=== PATIENT | female | born 1995 | race Hispanic/Latino ===

== ENCOUNTER 2018-03-02 14:55 | Outpatient (CLI) | payer MEDICAID ==
[2018-03-02 18:25] VITALS: BP 115/70
--- NOTE | 2018-03-02 19:57 | Ultrasound Report ---
FINAL REPORT EXAM: US OB FOLLOW UP HISTORY: WELL BEING; RAJEEV TECHNIQUE: Ultrasound obstetrical transabdominal PRIORS: None. FINDINGS: Single live intrauterine gestation present in cephalic presentation. cardiac activity present w ith heart rate 137 beats per minute The placenta is grade 1 and left lateral biometric measurements were obtained Biparietal diameter 38 weeks 3 days Head circumference 30 weeks 3 days abdominal circumference 37 weeks 5 days Femur length 36 weeks 3 days Based on today's exam estimated gestational age is 37 weeks 5 days estimated date of delivery March 18, 2015 Estimated weight today is 3249 grams IMPRESSION: Single live intrauterine gestation estimated at 37 weeks 5 days
--- NOTE | 2018-03-02 20:05 | Ultrasound Report ---
FINAL REPORT EXAM: US OB BPP WO NON-STRESS HISTORY: WELL BEING TECHNIQUE: Ultrasound biophysical profile PRIORS: None. FINDINGS: Single live intrauterine gestation is present with heart rate of 137 beats per minute Biophysical profile was performed respiratory motion 2 Body movement 2 tone 2 Amniotic fluid volume 2 Total 09/27 Impression Normal biophysical profile 09/27
== END 2018-03-02 19:30 | disposition home or self-care (01) ==
LOC: TRG 14:55
PROVIDERS: ATTEND Obstetrics & Gynecology
DX: O47.03 False labor before 37 completed weeks of gestation, third trimester (principal); O99.333 Smoking (tobacco) complicating pregnancy, third trimester; F17.210 Nicotine dependence, cigarettes, uncomplicated; Z3A.37 37 weeks gestation of pregnancy
CPT/HCPCS: 59025; 76816; 76819

== ENCOUNTER 2018-03-06 09:11 | Inpatient (IN) | payer MEDICAID ==
[2018-03-06] MEDS ORDERED: MINERAL OIL PO PRN ×2 (10:09→13:04)
[2018-03-06] MEDS ORDERED: BRETHINE SUB-Q PRN ×2 (10:09→13:04)
[2018-03-06] MEDS ORDERED: BRETHINE IVP PRN ×2 (10:09→13:04)
[2018-03-06] MEDS ORDERED: XYLOCAINE 2% INFILTRATI ONE ×2 (10:09→13:04)
[2018-03-06] MEDS ORDERED: PITOCin/NS 20 UNIT/1000ML DRIP 20 UNITS/1,000 ML BAG IV SCH ×2 (11:00→14:00)
[2018-03-06] MEDS ORDERED: CERVIDIL VG ONE (11:00)
[2018-03-06] MEDS ORDERED: LACTATED RINGERS 1,000 ML IV SCH ×2 (11:00→14:00)
[2018-03-06] MEDS ORDERED: PITOCin/NS 30 UNIT/500ML 30 UNITS/500 ML BAG IV SCH ×3 (11:00→14:00)
[2018-03-06 11:23] LABS: Hemoglobin 9.4 gm/dl (10.1-14.3); Mean Corpuscular HGB Conc 34 % (30-34); Mean Corpuscular Volume 87 fl (79-97); Platelet Count 214 K/mm3 (140-440); Red Blood Count 3.21 M/mm3 (3.65-5.03); Red Cell Distribution Width 15.6 % (13.2-15.2)
[2018-03-06] MEDS ORDERED: SUBLIMAZE IV PRN (13:04)
[2018-03-06] MEDS ORDERED: ZOFRAN IV PRN (13:04)
[2018-03-06] MEDS ORDERED: PHENERGAN PO PRN (13:04)
--- NOTE | 2018-03-06 13:04 | History and Physical Report ---
History of Present Illness Date of examination: 03/06/18 Date of admission: 03/06/18 09:11 Chief complaint: Induction of labor History of present illness: Pt is a 22yo WF EDC 02/26/18; EGA 41 02/26 weeks presents for induction of labor. She received late care at [facility] since 27 weeks and course has been unremarkable. records are available and GBS is unknown. Past History Past Medical History: no pertinent history Past Surgical History: no surgical history Family/Genetic History: hypertension, stroke Social history: no significant social history, single - Obstetrical History Expected Date of Delivery: 02/26/18 Actual Gestation: 41 Week(s) 1 Day(s) : 5 Medications and Allergies Allergies Allergy/AdvReac Type Severity Reaction Status Date / Time No Known Allergies Allergy Unverified 03/02/18 15:16 Active Meds: Active Medications Ephedrine Sulfate (Ephedrine Sulfate) 10 mg IV Q2M PRN PRN Reason: Hypotension Lactated Ringer's (Lactated Ringers) 1,000 mls @ 125 mls/hr IV DIRECT KALEIGH Oxytocin/Sodium Chloride (Pitocin/Ns 20 Unit/1000ml Drip) 20 units in 1,000 mls @ 125 mls/hr IV DIRECT KALEIGH Oxytocin/Sodium Chloride (Pitocin/Ns 30 Unit/500ml) 30 units in 500 mls @ 1 mls/hr IV TITR KALEIGH; Protocol Mineral Oil (Mineral Oil) 30 ml PO QHS PRN PRN Reason: Constipation Terbutaline Sulfate (Brethine) 0.25 mg SUB-Q ONCE PRN PRN Reason: Hyperstimulation/Hypertonicity Terbutaline Sulfate (Brethine) 0.25 mg IVP ONCE PRN PRN Reason: Hyperstimulation/Hypertonicity Review of Systems All systems: negative - Vital Signs Vital signs: Vital Signs Pulse BP 75 120/62 03/06/18 09:24 03/06/18 09:24 Temp Pulse Resp BP Pulse Ox 98.1 F 111 H 117/74 03/06/18 09:38 03/06/18 12:28 03/06/18 12:28 - Physical Exam Breasts: Positive: deferred Cardiovascular: Regular rate Lungs: Positive: Clear to auscultation Abdomen: Positive: normal appearance Genitourinary (Female): Positive: normal external genitalia Vagina: Positive: normal moisture Uterus: Positive: enlarged Extremities: Positive: normal - Obstetrical FHR: category 1 Uterine Contraction Monitor Mode: External Cervical Dilatation: 1 (per nurse) Cervical Effacement Percentage: 60 (per nurse) station: -3 Uterine Contraction Pattern: Irregular Uterine Tone Measurement Phase: Contraction Uterine Contraction Intensity: Mild Results Result Diagrams: 03/06/18 10:00 Abnormal lab results 03/06/18 Range/Units 10:00 RBC 3.21 L (3.65-5.03) M/mm3 Hgb 9.4 L (10.1-14.3) gm/dl Hct 28.0 L (30.3-42.9) % RDW 15.6 H (13.2-15.2) % All other labs normal. Assessment and Plan - Patient Problems (1) 41 weeks gestation of Onset Date: 03/06/18 Current Visit: Yes Status: Acute Plan to address problem: A: IUP @ 41 1/7 weeks GBS unknown P: Admit to L&D for cervidil/pitocin induction of labor IV Ampicillin
[2018-03-06] MEDS ORDERED: AMPICILLIN/NS 2 GM/100 ML 2 GM/100 ML BAG IV ONE (14:11)
[2018-03-06] MEDS: AMPICILLIN/NS 1 GM/50 ML 1 GM/50 ML BAG IV SCH ×2 (19:00→21:56)
[2018-03-07] MEDS: STADOL IV PRN ×2 (00:44→10:33)
[2018-03-07] MEDS: AMPICILLIN/NS 1 GM/50 ML 1 GM/50 ML BAG IV SCH ×2 (02:50→09:24)
--- NOTE | 2018-03-07 09:23 | Progress Note ---
Assessment and Plan - Patient Problems (1) 41 weeks gestation of Onset Date: 03/06/18 Current Visit: Yes Status: Acute Plan to address problem: A: IUP @ 41 2/7 weeks GBS unknown P: Continue with pitocin induction of labor IV Ampicillin Subjective - Subjective Date of service: 03/07/18 Principal diagnosis: IUP @ 41 2/7 weeks Interval history: Pt is a 22yo WF EDC 02/26/18; EGA 41 2/7 weeks presented for induction of labor. She received cervidil and is currently on pitocin 8mu/min and costa q 3-4 mins. Patient reports: movement normal, contractions, no new complaints, no loss of fluid, no vaginal bleeding Objective - Vital Signs Vital Signs: Vital Signs - 12hr 03/06/18 03/07/18 03/07/18 23:00 00:36 00:44 Temperature Pulse Rate 70 71 Respiratory 18 Rate Blood Pressure 109/58 119/75 03/07/18 03/07/18 03/07/18 01:45 02:17 02:45 Temperature Pulse Rate 59 L 67 65 Respiratory Rate Blood Pressure 110/71 108/60 114/67 03/07/18 03/07/18 03/07/18 03:16 03:36 03:45 Temperature 98.6 F Pulse Rate 66 71 Respiratory 18 Rate Blood Pressure 127/69 117/66 03/07/18 03/07/18 03/07/18 04:16 04:45 05:16 Temperature Pulse Rate 64 61 72 Respiratory Rate Blood Pressure 108/66 109/60 118/61 03/07/18 03/07/18 03/07/18 05:46 06:16 07:45 Temperature Pulse Rate 71 65 78 Respiratory Rate Blood Pressure 120/72 116/71 118/78 03/07/18 03/07/18 03/07/18 07:47 08:17 08:46 Temperature 98.4 F Pulse Rate 74 75 Respiratory Rate Blood Pressure 119/81 110/61 03/07/18 09:15 Temperature Pulse Rate 81 Respiratory Rate Blood Pressure 104/57 - Exam Uterus: Present: normal FHR: category 1 Uterine Contraction Monitor Mode: External Cervical Dilatation: 2 (per nurse) Cervical Effacement Percentage: 60 (per nurse) station: -2 Uterine Contraction Pattern: Regular Uterine Tone Measurement Phase: Contraction Uterine Contraction Intensity: Mild - Labs Labs: Abnormal Labs 03/06/18 10:00 RBC 3.21 L Hgb 9.4 L Hct 28.0 L RDW 15.6 H Laboratory Results - last 24 hr 03/06/18 03/06/18 03/06/18 09:55 10:00 10:00 WBC 8.2 RBC 3.21 L Hgb 9.4 L Hct 28.0 L MCV 87 MCH 29 MCHC 34 RDW 15.6 H Plt Count 214 RPR Nonreactive Blood Type O NEGATIVE Antibody Screen Negative
[2018-03-07] MEDS: IBUPROFEN PO SCH ×3 (14:00→22:56)
[2018-03-07] MEDS ORDERED: CYTOTEC ONE (15:24)
[2018-03-07] MEDS ORDERED: METHERGINE IM ONE (15:24)
--- NOTE | 2018-03-07 15:30 | Procedure Note ---
OB Delivery Note - Delivery Date of Delivery: 03/07/18 Surgeon: KAREN CHUNG Estimated blood loss: 300cc - Vaginal Delivery presentation: vertex Delivery position: OA Intrapartum events: none, PROM->1hr before delivery Delivery induction: cervidil Delivery augmentation: rupture of membranes, pitocin Delivery monitor: external FHT, external uterine Route of delivery: Delivery placenta: spontaneous Delivery cord: 3 umbilical vessels Episiotomy: none Delivery laceration: none Anesthesia: intravenous Delivery comments: delivered OA and placed on Mom's chest for [id number] bonding and delayed cord clamping, cut by grandma - A at 1 minute: 8 at 5 minutes: 9 Gender: Male (2869gms)
[2018-03-07] MEDS ORDERED: CYTOTEC PR ONE (15:33)
[2018-03-07] MEDS ORDERED: MILK OF MAGNESIA PO PRN (15:33)
[2018-03-07] MEDS ORDERED: TYLENOL PO PRN (15:33)
[2018-03-07] MEDS ORDERED: DULCOLAX PR PRN (15:33)
[2018-03-07] MEDS ORDERED: METHERGINE IM PRN (15:33)
[2018-03-07] MEDS ORDERED: PHENERGAN PR PRN (15:33)
[2018-03-07] MEDS ORDERED: LANSINOH TP PRN (15:33)
[2018-03-07] MEDS ORDERED: ZOFRAN IV PRN (15:33)
[2018-03-07] MEDS ORDERED: BENADRYL PO PRN (15:33)
[2018-03-07] MEDS ORDERED: NORCO 5/325 PO PRN (15:33)
[2018-03-07] MEDS ORDERED: TUCKS PAD TP PRN (15:33)
[2018-03-07] MEDS ORDERED: PHENERGAN PO PRN (15:33)
[2018-03-07] MEDS ORDERED: SODIUM CHLORIDE FLUSH SYRINGE 10 ML IV NR (16:00)
[2018-03-07] MEDS ORDERED: PITOCin/NS 20 UNIT/1000ML DRIP 20 UNITS/1,000 ML BAG IV SCH (16:00)
[2018-03-07] MEDS: FEOSOL PO SCH (21:38)
[2018-03-07] MEDS: COLACE PO SCH (21:38)
[2018-03-08] MEDS: IBUPROFEN PO SCH ×4 (05:04→22:33)
[2018-03-08] MEDS ORDERED: BOOSTRIX IM ONE (06:00)
[2018-03-08 06:09] LABS: Hematocrit 25.2 % (30.3-42.9); Hemoglobin 8.6 gm/dl (10.1-14.3)
[2018-03-08] MEDS: PRENATAL VITAMIN PO SCH (10:58)
[2018-03-08] MEDS: COLACE PO SCH ×2 (10:58→22:33)
[2018-03-08] MEDS: FEOSOL PO SCH ×2 (10:58→22:33)
--- NOTE | 2018-03-08 11:18 | Progress Note ---
Assessment and Plan - Patient Problems (1) 41 weeks gestation of Onset Date: 03/06/18 Current Visit: Yes Status: Resolved (2) (normal spontaneous vaginal delivery) Onset Date: 03/08/18 Current Visit: Yes Status: Resolved Plan to address problem: A: S/P - PPD #1 Doing well Asymptomatic anemia - stable P: May go home today. Subjective - Subjective Date of service: 03/08/18 Principal diagnosis: s/p - PPD #1 Interval history: Pt is feeling well without complaints. Bleeding improved. Patient reports: appetite normal, voiding normally, pain well controlled, flatus, ambulating normally, no dizzy ambulation, no nauseated : doing well, bottle feeding Objective - Vital Signs Latest vital signs: Vital Signs Temp Pulse Resp BP BP Pulse Ox 03/08/18 07:58 98.1 F 69 18 108/66 108/66 97 03/08/18 05:57 20 03/08/18 05:04 18 03/08/18 00:00 98.6 F 69 18 104/63 03/07/18 23:56 18 03/07/18 22:56 18 03/07/18 21:37 16 03/07/18 20:00 98.4 F 77 18 118/61 03/07/18 17:35 98.4 F 18 109/74 97 03/07/18 16:15 60 128/73 03/07/18 15:45 80 121/59 03/07/18 15:21 70 134/80 03/07/18 15:19 61 126/83 03/07/18 15:16 72 130/66 03/07/18 15:15 64 98 03/07/18 14:46 71 130/72 03/07/18 14:16 61 107/59 03/07/18 13:46 66 122/62 03/07/18 13:16 67 118/80 03/07/18 12:46 68 111/73 03/07/18 12:16 62 124/60 03/07/18 11:45 60 113/56 Intake and Output 03/07/18 03/08/18 03/08/18 22:59 06:59 14:59 Intake Total 300 480 Output Total 900 Balance -900 300 480 Intake: Oral 480 Intake, Free Water 300 Output: Urine 900 Void 900 Other: Total, Intake Amount 480 Total, Output Amount 900 # Voids Void 2 Estimated Blood Loss 300 - Exam Breasts: Present: deferred Abdomen: Present: normal appearance, soft Uterus: Present: normal, firm, fundal height below umbilicus Extremities: Present: normal - Labs Labs: Abnormal lab results 03/08/18 Range/Units 05:41 Hgb 8.6 L (10.1-14.3) gm/dl Hct 25.2 L (30.3-42.9) % Laboratory Tests 03/06/18 03/06/18 03/06/18 09:55 10:00 10:00 WBC 8.2 RBC 3.21 L Hgb 9.4 L Hct 28.0 L MCV 87 MCH 29 MCHC 34 RDW 15.6 H Plt Count 214 RPR Nonreactive Blood Type O NEGATIVE Antibody Screen Negative 03/08/18 05:41 WBC RBC Hgb 8.6 L Hct 25.2 L MCV MCH MCHC RDW Plt Count RPR Blood Type Antibody Screen
--- NOTE | 2018-03-08 12:01 | Discharge Summary ---
Providers - Providers Date of Admission: 03/06/18 09:11 Date of discharge: 03/08/18 Attending physician: KAREN CHUNG Primary care physician: KAREN CHUNG Hospitalization Reason for admission: induction of labor, IUP at term Delivery: Episiotomy: none Laceration: none Other procedures: none complications: none Discharge diagnosis: IUP at term delivered [place] baby: male Hospital course: Pt is a 22yo WF EDC 02/26/18; EGA 41 02/26 weeks who presented for induction of labor. She received late care at [facility] since 27 weeks and course had been unremarkable. She received cervidil and pitocin and subsequently had a Normal vaginal delivery. By PPD #1 she was doing well and therefore discharged to home on PPD #1 in stable condition. Condition at discharge: Good Disposition: DC-01 TO HOME OR SELFCARE - Discharge Diagnoses (1) 41 weeks gestation of Status: Resolved (2) (normal spontaneous vaginal delivery) Status: Resolved Plan - Discharge Medications Prescriptions: Ferrous Sulfate [Feosol 325 MG tab] 325 mg PO BID #60 tablet Ibuprofen [Motrin 600 MG tab] 600 mg PO Q6H #30 tablet Vit-Fe Fumar-FA [ Vitamin] 1 each PO QDAY #30 tablet - Provider Discharge Summary Activity: routine, no sex for 6 weeks, no heavy lifting 4 weeks, no strenuous exercise Diet: routine Instructions: routine Additional instructions: [] Smoking cessation referral if applicable(refer to patient education folder for contact #) [] Refer to [facility] Booklet Call your doctor immediately for: * Fever > 100.5 * Heavy vaginal bleeding ( >1 pad per hour) * Severe persistent headache * Shortness of breath * Reddened, hot, painful area to leg or breast * Drainage or odor from incision. * Keep incision clean and dry at all times and follow doctor's instructions regarding bathing/showering - Follow up plan Follow up: KAREN CHUNG MD [Primary Care Provider] - 6 Weeks
[2018-03-08] MEDS ORDERED: M-M-R II VACCINE SUB-Q ONE (15:33)
[2018-03-09] MEDS: IBUPROFEN PO SCH ×2 (06:12→10:37)
[2018-03-09] MEDS: COLACE PO SCH (10:37)
[2018-03-09] MEDS: FEOSOL PO SCH (10:37)
[2018-03-09] MEDS: PRENATAL VITAMIN PO SCH (10:37)
[2018-03-09 15:46] VITALS: BP 112/63
== END 2018-03-09 14:35 | disposition home or self-care (01) | DRG 775 ==
LOC: LD 09:11 → OB 03-07 17:24
PROVIDERS: ADMIT Obstetrics & Gynecology; ATTEND Obstetrics & Gynecology
PROC: 10E0XZZ Delivery of Products of Conception, External Approach (ICD-10-PCS; principal; 2018-03-07)
PROC: 3E033VJ Introduction of Other Hormone into Peripheral Vein, Percutaneous Approach (ICD-10-PCS; 2018-03-07)
PROC: 3E0234Z Introduction of Serum, Toxoid and Vaccine into Muscle, Percutaneous Approach (ICD-10-PCS; 2018-03-08)
DX: O42.02 Full-term premature rupture of membranes, onset of labor within 24 hours of rupture (principal); Z3A.41 41 weeks gestation of pregnancy; Z37.0 Single live birth; Z23 Encounter for immunization; Z82.3 Family history of stroke; Z82.49 Family history of ischemic heart disease and other diseases of the circulatory system; O99.02 Anemia complicating childbirth; D64.9 Anemia, unspecified
CPT/HCPCS: 36415; 85014; 85018; 85027; 86592; 86850; 86900; 86901; G0378; J0290; J0595; J2210; J2590; J3010; J7120